=== PATIENT | male | born 1945 | race African-American/Black ===

== ENCOUNTER → 2023-10-01 12:37 | Outpatient (REF) | payer MEDICARE, SELFPAY ==
[2023-10-01 15:38] LABS: PSA, Total - Diagnostic 0.57 ng/ml (0.0-4.0)
== END ==
LOC: REG 12:37
PROVIDERS: ATTENDING PHYSICIAN Urology; FAMILY PHYSICIAN Family Medicine
DX: N40.1 Benign prostatic hyperplasia with lower urinary tract symptoms (principal)
CPT/HCPCS: 36415; 84153

== ENCOUNTER → 2024-12-20 16:10 | Outpatient (REF) | payer MEDICARE, SELFPAY ==
[2024-12-20 17:32] LABS: PSA, Total - Diagnostic 0.38 ng/ml (0.0-4.0)
== END ==
LOC: REG 16:10
PROVIDERS: ATTENDING PHYSICIAN Urology; FAMILY PHYSICIAN Family Medicine
DX: R97.20 Elevated prostate specific antigen [PSA] (principal)
CPT/HCPCS: 36415; 84153